=== PATIENT | female | born 1945 | race Caucasian/White ===

== ENCOUNTER 2018-06-22 13:31 | Inpatient (IN) | payer MEDICARE ==
[~2018-06-22] VITALS: Ht 157.5 cm; Wt 61.2 kg
[2018-06-22 15:28] LABS: BASOPHILS % 0.1 % (0.0-1.0); EOSINOPHILS % 0.2 % (0.0-6.0); HEMATOCRIT 37.1 % (34.2-44.1); HEMOGLOBIN 12.8 g/dL (12.0-16.0); LYMPHOCYTES # (AUTO) 1.5 (1.0-3.2); LYMPHOCYTES % 16.5 % (18.0-39.1); MEAN CORPUSCULAR HEMOGLOBIN 31.3 pg (28-32); MEAN CORPUSCULAR HGB CONC 34.5 g/dL (31-35); MEAN CORPUSCULAR VOLUME 90.7 fL (81-99); MONOCYTES # (AUTO) 0.6 (0.2-0.8); MONOCYTES % 6.9 % (4.4-11.3); NEUTROPHILS # (AUTO) 6.9 (2.1-6.9); PLATELET COUNT 213 x10e3/uL (140-360); RED BLOOD COUNT 4.09 x10e6/uL (3.6-5.1); RED CELL DISTRIBUTION WIDTH 12.7 % (11.7-14.4)
[2018-06-22 15:33] LABS: CLARITY,URINE CLEAR (CLEAR); COLOR,URINE YELLOW (YELLOW); LEUKOCYTE ESTERASE ,URINE NEGATIVE (NEGATIVE)
[2018-06-22 15:34] LABS: BILIRUBIN,URINE NEGATIVE (NEGATIVE); KETONES,URINE NEGATIVE (NEGATIVE); NITRITE,URINE NEGATIVE (NEGATIVE); PROTEIN,URINE DIPSTICK NEGATIVE (NEGATIVE); URINE UROBILINOGEN 0.2 mg/dL (0.2 - 1)
[2018-06-22 15:45] LABS: EPITHELIAL CELLS,URINE FEW /LPF; RBC,URINE 0-5 /HPF (0-5); WBC,URINE (MAN) 0-5 /HPF (0-5)
[2018-06-22 15:52] LABS: ALBUMIN 3.6 g/dL (3.5-5.0); ANION GAP 14.6 mmol/L (8-16); CALCIUM 9.4 mg/dL (8.4-10.2); CREATININE, SERUM 0.94 mg/dL (0.57-1.11); POTASSIUM 3.6 mmol/L (3.5-5.1)
[2018-06-22] MEDS ORDERED: SODIUM CHLORIDE FLUSH 10 ML SYR INJ PRN (17:00)
[2018-06-22] MEDS ORDERED: ONDANSETRON HCL INJ 2 MG/ML VIAL IV PRN (17:00)
[2018-06-22] MEDS ORDERED: MORPHINE SULFATE 2 MG/ML SYR IV PRN (17:00)
[2018-06-22] MEDS: SODIUM CHLORIDE 0.9% 1000ML 1,000 ML IV SCH (17:45)
[2018-06-22] MEDS: CEFTRIAXONE SOD 1 GM VIAL IV SCH (17:46)
[2018-06-22] MEDS ORDERED: [UNRECOGNIZED DRUG - OTHER] PO (18:29)
[2018-06-22] MEDS ORDERED: ATORVASTATIN CA10 MG PO (19:33)
[2018-06-22 19:46] VITALS: BP 139/66
[2018-06-22 20:00] VITALS: BP 139/66
[2018-06-23] VITALS (8 sets, daily range): BP systolic 120–164; BP diastolic 56–74
[2018-06-23] MEDS: SODIUM CHLORIDE 0.9% 1000ML 1,000 ML IV SCH ×2 (01:50→12:47)
[2018-06-23] MEDS ORDERED: ALLEGRA ALLERG180 MG PO (02:02)
[2018-06-23] MEDS ORDERED: DIPHENHYDRAMINE HCL INJ 50 MG/ML VIAL IV ONE ×2 (04:00→08:15)
[2018-06-23] MEDS ORDERED: SODIUM CHLORIDE 0.9% 50ML 50 ML ONE (05:07)
[2018-06-23] MEDS: CEFTRIAXONE SOD 1 GM VIAL IV SCH ×2 (05:16→17:47)
[2018-06-23 06:09] LABS: EOSINOPHILS # (AUTO) 0.1 (0.0-0.4); EOSINOPHILS % 1.4 % (0.0-6.0); HEMATOCRIT 36.8 % (34.2-44.1); HEMOGLOBIN 12.6 g/dL (12.0-16.0); LYMPHOCYTES # (AUTO) 1.7 (1.0-3.2); MEAN CORPUSCULAR HEMOGLOBIN 31.2 pg (28-32); MEAN CORPUSCULAR HGB CONC 34.2 g/dL (31-35); MEAN CORPUSCULAR VOLUME 91.1 fL (81-99); MONOCYTES # (AUTO) 0.4 (0.2-0.8); MONOCYTES % 7.1 % (4.4-11.3); NEUTROPHILS % 58.3 % (38.7-80.0); PLATELET COUNT 183 x10e3/uL (140-360); RED BLOOD COUNT 4.04 x10e6/uL (3.6-5.1); RED CELL DISTRIBUTION WIDTH 12.5 % (11.7-14.4)
--- NOTE | 2018-06-23 10:49 | History and Physical ---
Ms. Christine is a [facility] 73-year-old woman who is sent from Dr. Lopez's office for finding of kidney stones. HISTORY OF PRESENT ILLNESS: The patient reports that she was in [place], [place], last Domingo and developed some abdominal discomfort and dysuria. She visited an emergency room and was told she had both kidney stones and urinary tract infection and was given an antibiotic. On returning to [facility], she saw Dr. Lopez, who confirmed the findings. PAST MEDICAL HISTORY: Significant for general good health. She reports she has recently found she has macular degeneration and takes PreserVision vitamins. She also takes atorvastatin 10 mg one-half tablet daily. She had thoracic spine surgery in 2013. She has a remote hysterectomy and had kidney stones once as a young woman. PHYSICAL EXAMINATION GENERAL: Exam at this time shows a pleasant white woman who is alert and comfortable today. VITALS: Blood pressure 160/70. HEENT: Unremarkable. NECK: No jugular venous distention. THORAX: Heart sounds S1, S2 are equal. No murmurs. LUNGS: Clear. ABDOMEN: Protuberant. Normal bowel sounds. Nontender. No mass. EXTREMITIES: No cyanosis, clubbing or edema. Review of outside x-ray report suggests bilateral kidney stones. ASSESSMENT 1. Kidney stones. 2. Urinary tract infection. 3. Elevated blood pressure readings. PLAN: Will monitor her closely and see whether she may need blood pressure medications or not. Will await cystoscopy. Job#: [id number] cc:MD HAMLET SHARP MD
--- NOTE | 2018-06-23 11:12 | Consultation ---
DATE OF CONSULTATION: June 23, 2018 UROLOGY CONSULTATION REASON FOR CONSULTATION: Obstructive uropathy. HISTORY OF PRESENT ILLNESS: Maisha Christine is a 73-year-old woman who has had a previous history of urinary tract infections in the past. She had not had a recent one. The patient noted gross hematuria last Thursday. She also noted severe left-sided flank pain. She was evaluated by her primary care physician and underwent CT scanning, which showed bilateral obstructing ureterolithiasis as well as punctate right nephrolithiasis. The patient denies any stress-type urinary incontinence. Reports rare urge-type urinary incontinence. Denies ever having any urological surgery. The patient did have a kidney stone in the remote past over 40 years ago that she presumably passed but never retrieved. PAST MEDICAL AND SURGICAL HISTORY 1. 2, para 2 by normal spontaneous vaginal delivery. 2. Status post total vaginal hysterectomy. 3. Hypercholesterolemia. 4. The patient has what sounds like recurrent idiopathic urticaria. ALLERGIES: IBUPROFEN. CURRENT MEDICATIONS: Please refer to the MAR. REVIEW OF SYSTEMS: As discussed above in the history of present illness and past medical history, otherwise negative for all systems. SOCIAL HISTORY: The patient denies smoking, ethanol and drug use. 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 PHYSICAL EXAMINATION GENERAL: Healthy-appearing, 73-year-old woman lying in bed in no apparent distress. VITAL SIGNS: She is currently afebrile, and the vital signs are currently stable. ABDOMEN: Soft, nondistended and nontender without costovertebral angle tenderness. The kidneys are not palpable without hepatosplenomegaly. No obvious evidence of hernia. For the remaining physical examination systems, please refer to the admission history and physical on the chart. LABORATORY STUDIES: CT scan of the abdomen and pelvis, which was done in an outside institution, showed bilateral obstructing ureterolithiasis and right punctate nephrolithiasis. White blood cell count is 5180, hemoglobin 12.6, platelets 183,000. The patient's creatinine is 0.94. Urinalysis is negative. ASSESSMENT 1. History of urinary tract infection. 2. History of gross hematuria. 3. Left renal colic that is improved. 4. Bilateral obstructing ureterolithiasis. 5. Right punctate nephrolithiasis. 6. Urge-type urinary incontinence. 7. Bilateral hydroureteronephrosis. PLAN: Due to the fact that the patient has bilaterally obstructing stones, stent placement is indicated. I discussed with the patient the options of stone passage trial versus intervention with stent placement followed by elective stone surgery. The patient is agreeable to the plan. She understands she will have temporary indwelling ureteral stents that will require followup and removal. Thank you very much for involving us in the care of your patient. We will be happy to follow her along with you, as well as an outpatient. Job#: [id number] cc:GANESH LING MD
[2018-06-23] MEDS ORDERED: IOPAMIDOL 610MG/1ML 300 MG/ML VIAL IV ONE (12:06)
[2018-06-23] MEDS ORDERED: ACETAMINOPHEN/CODEINE 300MG - 30MG TAB PO PRN (12:15)
[2018-06-23] MEDS: PHENAZOPYRIDINE HCL 100 MG TAB PO SCH ×2 (14:00→18:33)
[2018-06-23] MEDS: OXYBUTYNIN CHLORIDE 5 MG TAB PO SCH ×2 (15:23→21:24)
[2018-06-23] MEDS ORDERED: LIDOCAINE HCL 2% LOCAL INJ 5 ML SDV VIAL INJ ONE (19:00)
[2018-06-23] MEDS ORDERED: DEXAMETHASONE SOD PHOS INJ 4 MG/ML VIAL ONE (19:00)
[2018-06-23] MEDS ORDERED: PROPOFOL IV EMULSION 10 MG/ML 20 ML VIAL ONE (19:00)
[2018-06-23] MEDS ORDERED: ONDANSETRON HCL INJ 2 MG/ML VIAL ONE (19:00)
[2018-06-23] MEDS ORDERED: SEVOFLURANE INHAL SOLN 250 ML PEN BTL ONE (19:00)
[2018-06-24] VITALS: BP 122/65
[2018-06-24] MEDS: SODIUM CHLORIDE 0.9% 1000ML 1,000 ML IV SCH (01:12)
[2018-06-24 04:00] VITALS: BP 175/76
[2018-06-24] MEDS: CEFTRIAXONE SOD 1 GM VIAL IV SCH (04:36)
[2018-06-24 05:41] VITALS: BP 152/69
[2018-06-24 07:15] VITALS: BP 123/58
[2018-06-24 07:30] VITALS: BP 123/58
[2018-06-24] MEDS: OXYBUTYNIN CHLORIDE 5 MG TAB PO SCH (09:41)
--- NOTE | 2018-06-24 09:48 | Discharge Summary ---
Ms. Christine is a [facility] 73-year-old woman who presented to the emergency room on June 22, 2018, with the complaint of abdominal discomfort and finding of kidney stones on x-ray. She was seen in consultation by Dr. Jacobs. On June 23, 2018, was taken to the operating room where she had ureteral stents placed. Urinalysis showed 0-5 red cells and 0-5 white cells. Patient tolerated the placement on bilateral stents. Today, on the morning of June 24, 2018, the patient is pain free and making urine. She is eager to be discharged home and she is afebrile. She will follow up with Dr. Jacobs in the office in 7-10 days to plan further management and ureteroscopy. DISCHARGE DIAGNOSES 1. Kidney stones. 2. Successful left ureteral stent placement. FATUMA POLLACK MD Job#: [id number] RI cc:MD HAMLET SHARP MD
[2018-06-24] MEDS ORDERED: TYLENOL WITH C1 EACH PO (09:56)
[2018-06-24] MEDS ORDERED: DITROPAN XL5 MG PO (09:57)
== END 2018-06-24 10:24 | disposition home or self-care (01) | DRG 694 ==
LOC: ER 14:24 → ERHOLD 16:47 → MED/SURG3 17:44
PROVIDERS: ADMIT Internal Medicine Cardiovascular Disease; ATTEND Internal Medicine Cardiovascular Disease
PROC: BT141ZZ Fluoroscopy of Kidneys, Ureters and Bladder using Low Osmolar Contrast (ICD-10-PCS; 2018-06-23)
PROC: 0T788DZ Dilation of Bilateral Ureters with Intraluminal Device, Via Natural or Artificial Opening Endoscopic (ICD-10-PCS; principal; 2018-06-23 12:00)
DX: N13.2 Hydronephrosis with renal and ureteral calculous obstruction (principal); E78.00 Pure hypercholesterolemia, unspecified; N39.41 Urge incontinence; H35.30 Unspecified macular degeneration
CPT/HCPCS: 36415; 74420; 80053; 81001; 85025; 99284; C2617; J0696; J1100; J1200; J2001; J2405; J7030

== ENCOUNTER → 2018-07-16 | Day surgery (SDC) | payer MEDICARE ==
--- NOTE | 2018-07-15 11:23 | Diagnostic Imaging Report ---
EXAMINATION: CHEST 2 VIEWS INDICATION: Pre-admit COMPARISON: None FINDINGS: TUBES and LINES: None. LUNGS: Lungs are well inflated. Lungs are clear. There is no evidence of pneumonia or pulmonary edema. PLEURA: No pleural effusion or pneumothorax. HEART AND MEDIASTINUM: The cardiac silhouette is unremarkable. Ectatic thoracic aorta. BONES AND SOFT TISSUES: No acute osseous lesion. Soft tissues are unremarkable. UPPER ABDOMEN: No free air under the diaphragm. IMPRESSION: No acute radiographic abnormality. Signed by: Dr. Jabier Bains MD on 07/15/2018 11:20 AM
[2018-07-15 11:27] LABS: EOSINOPHILS # (AUTO) 0.1 (0.0-0.4); EOSINOPHILS % 1.3 % (0.0-6.0); HEMATOCRIT 37.5 % (34.2-44.1); HEMOGLOBIN 12.8 g/dL (12.0-16.0); LYMPHOCYTES # (AUTO) 1.8 (1.0-3.2); LYMPHOCYTES % 28.4 % (18.0-39.1); MEAN CORPUSCULAR HEMOGLOBIN 31.3 pg (28-32); MEAN CORPUSCULAR HGB CONC 34.1 g/dL (31-35); MEAN CORPUSCULAR VOLUME 91.7 fL (81-99); MONOCYTES # (AUTO) 0.5 (0.2-0.8); MONOCYTES % 7.3 % (4.4-11.3); NEUTROPHILS % 62.8 % (38.7-80.0); PLATELET COUNT 188 x10e3/uL (140-360); RED BLOOD COUNT 4.09 x10e6/uL (3.6-5.1); RED CELL DISTRIBUTION WIDTH 12.6 % (11.7-14.4)
[~2018-07-16] MED LIST: ALLEGRA ALLERG180 MG PO; ATORVASTATIN CA10 MG PO; BELLADONNA/OPIUM 60 MG SUPP PR ONE; CEFTRIAXONE SOD 1 GM VIAL ONE; DEXAMETHASONE SOD PHOS INJ 4 MG/ML VIAL ONE; DITROPAN XL5 MG PO; FENTANYL CITRATE/PF 100MCG/2 ML INJ ONE; IOPAMIDOL 610MG/1ML 300 MG/ML VIAL IV ONE; LIDOCAINE HCL 2% LOCAL INJ 5 ML SDV VIAL INJ ONE; MIDAZOLAM HCL 2 MG/2 ML VIAL ONE; MULTI-VITAMIN1 EACH PO; ONDANSETRON HCL INJ 2 MG/ML VIAL ONE; PRESERVISION A1 EACH PO; PROPOFOL IV EMULSION 10 MG/ML 20 ML VIAL ONE; SEVOFLURANE INHAL SOLN 250 ML PEN BTL ONE; TYLENOL WITH C1 EACH PO; [UNRECOGNIZED DRUG - OTHER] PO
--- OUTSIDE RECORDS SUMMARY | 2018-07-16 09:05 | XMS REPORT | Summary of Care ---
Author Author ANURADHA Real, GANESH Pantoja Unknown Address Unknown Phone Unavailable Care Team Providers Care Federal Appellate Law Clerk Name Role Phone ANURADHA Real, GANESH Unavailable Unavailable ANURADHA HALL [place], GANESH FLANNERY Unavailable Unavailable Unavailable Unavailable Functional Status Name Dates Details Functional status health issues are not documented Status: Name Dates Details Cognitive status health issues are not documented Status: Problems Name Dates Details Right lumbar radiculopathy (724.4, M54.16) Status: Active Scoliosis (737.30, M41.9) Status: Active Right thigh pain (729.5, M79.651) Status: Active Right leg paresthesias (782.0, R20.2) Status: Active Acute bronchitis (466.0, J20.9) Status: Active Allergic rhinitis due to pollen (477.0, J30.1) Status: Active Need for vaccination for pneumococcus (V03.82, Z23) Status: Active Well woman exam (no gynecological exam) (V70.0, Z00.00) Status: Active Abnormal urine finding (791.9, R82.90) Status: Active Osteopenia (733.90, M85.80) Status: Active Screening for hypothyroidism (V77.0, Z13.29) Status: Active Bilateral hearing loss (389.9, H91.93) Status: Active Right hip pain (719.45, M25.551) Status: Active BMI 23.0-23.9, adult (V85.1, Z68.23) Status: Active Need for 23-polyvalent pneumococcal polysaccharide vaccine (V03.82, Z23) Status: Active Encounter for Medicare annual wellness exam (V70.0, Z00.00) Status: Active Breast pain, left (611.71, N64.4) Status: Active Dense breast tissue (793.82, R92.2) Status: Active Other hyperlipidemia (272.4, E78.49) Status: Active On statin therapy (V58.69, Z79.899) Status: Active Influenza vaccination declined by patient (V64.06, Z28.21) Status: Active Depression screening (V79.0, Z13.89) Status: Active At low risk for fall (V49.89, Z91.81) Status: Active Encounter for mini-mental status examination Status: Active Personal history of colonic polyps (V12.72, Z86.010) Status: Active Flank pain (789.09, R10.9) Status: Active Hematuria (599.70, R31.9) Status: Active History of renal calculi (V13.01, Z87.442) Status: Active Left flank pain (789.09, R10.9) Status: Active Bilateral ureteral calculi (592.1, N20.1) Status: Active Hydronephrosis, bilateral (591, N13.30) Status: Active Hydroureter (593.5, N13.4) Status: Active Medications Name Dates Details Giulia TABS TAKE 0.5 TABLET DAILY PRN R.N. Active Calcium 600+D TABS TAKE 1 TABLET DAILY * Refills: 0 R.N. Active Ocuvite TABS TAKE 1 TABLET DAILY. * Refills: 0 R.N. Active Atorvastatin Calcium 10 MG Oral Tablet TAKE 1 TABLET DAILY. * Quantity: 90 Refills: 2 ANURADHA Real, GANESH * Start : 29-Aug-2016 Active Allergies and Adverse Reactions Name Dates Details No Known Drug Allergies (Allergy) Status: Active Past Medical History Name Dates Details History of Encounter for routine gynecological examination with Papanicolaou smear of cervix (V72.31, Z01.419) Status: Resolved History of essential hypertension (V12.59, Z86.79) Status: Resolved History of Laryngotracheitis (464.20) Status: Resolved History of osteopenia (V13.59, Z87.39) Status: Resolved History of Sinusitis (473.9, J32.9) Status: Resolved History of urticaria (V13.3, Z87.2) Status: Resolved Procedures Procedure Dates Details CT Abdomen/Pelvis wo contrast [id number] Date: 21-Jun-2018 History of Hysterectomy Completed Immunization Name Dates Details Zoster (Zostavax) on: 25-Apr-2010 Prevnar 13 Intramuscular Suspension Lot #: [id number] on: 07-May-2016 Pneumococcal polysaccharide vaccine, 23 valent Lot #: [id number] on: 11-Jun-2017 Family History Name Dates Details Family history of Stroke Syndrome (V17.1) Status: Active Name Dates Details Family history of Hypertension (V17.49) Status: Active Social History Name Dates Details - Status: Name Dates Details Never smoker Vital Signs Date Test Result Details 32-Egw-880287:00 BP Systolic 173 mm[Hg] Status: Comments: Location: LUE; Position: Sitting BP Diastolic 88 mm[Hg] Status: Comments: Location: LUE; Position: Sitting :57 BP Systolic 164 mm[Hg] Status: Comments: Location: RUE; Position: Sitting BP Diastolic 90 mm[Hg] Status: Comments: Location: RUE; Position: Sitting :55 BP Systolic 174 mm[Hg] Status: Comments: Location: RUE; Position: Sitting BP Diastolic 91 mm[Hg] Status: Comments: Location: RUE; Position: Sitting Height 61.5 in Status: Weight 130.4375 lb Status: Body Mass Index Calculated 24.25 kg/m2 Status: Body Surface Area Calculated 1.58 m2 Status: Temperature 97.6 f Status: Comments: Method: Temporal Heart Rate 72 /min Status: Respiration Rate 18 /min Status: :10 BP Systolic 144 mm[Hg] Status: Comments: Location: LUE; Position: Sitting BP Diastolic 76 mm[Hg] Status: Comments: Location: E; Position: Sitting Height 61.5 in Status: Weight 132.0625 lb Status: Body Mass Index Calculated 24.55 kg/m2 Status: Body Surface Area Calculated 1.59 m2 Status: Temperature 97.6 f Status: Comments: Method: Temporal Heart Rate 78 /min Status: Respiration Rate 16 /min Status: Physical Findings 0 Status: Comments: Pain Scale Physical Findings 0 Status: Comments: Alcohol Screen - How many times in the past yr have you had 5 (for M) or 4 (for F) or 4 (for all > 65yrs) or more drinks in a day? Results Date Description Value Details :19 [O] Urine Dipstick (In Office) Glucose negative (Normal) LEUKOCYTES small NITRITE negative (Normal) UROBILINOGEN negative (Normal) PROTEIN negative (Normal) pH 5 (Normal) URINE BLOOD 250 SPECIFIC GRAVITY 1.000 (Normal) KETONES negative (Normal) BILIRUBIN negative (Normal) COLOR URINE yellow (Normal) APPEARANCE clear (Normal) 19-Nwm-09235:41 CT Renal Stone [address] SEE NOTESSEE NOTES Comments: Dr. Lopez was notified by telephone at 10:50 AM June 22, 2018.--Read by: Jerardo Cesarictated Date/time: 06/22/18 10:43Electronically Signed by: Jerardo Cesar MD 06/22/1810:51FINAL REPORTEXAM: CT ABDOMEN AND PELVIS WITHOUT CONTRASTDATE: 06/22/2018 8:41 AM CDTINDICATION: - R10.9 Unspecified abdominal pain,R31.9 Hematuria,unspecifiedADDITIONAL INFORMATION: None.COMPARISON: None.TECHNIQUE: Volumetric CT of the abdomen and pelvis is acquired withoutintravenous contrast. Axial, coronal and sagittal images are provided.IV contrast: None.Enteric contrast: None.DLP: 269 mGy-cmFINDINGS: Lines, tubes and hardware: None.Lower thorax: Clear.Liver: Normal.Biliary tree: No intra- or extrahepatic biliary ductal dilation.Gallbladder: Normal.Pancreas: Normal.Spleen: Normal.Adrenals: Normal.Kidneys and ureters: There are multiple punctate calyceal stones in the rightkidney. There is an 8 mm stone in the mid right ureter with associatedhydronephrosis and hydroureter. The ureter distal to the stone is normal incaliber. There is mild hydroureter on the left side and there is a 6 mm stonein the distal left ureter immediately proximal to the ureteropelvic junction(series 2 image 145).There is no perinephric or periureteral fat stranding to suggest acuteinflammation.Bladder: Normal.Reproductive organs: There has been a prior hysterectomy.Gastrointestinal tract: There is div erticular disease of the sigmoid colon butno evidence of diverticulitis. Moderate amount of stool is present in thecolon.Appendix: Normal.Peritoneum, mesentery and retroperitoneum: No free air, ascites or loculatedfluid.Lymph nodes: Normal.Vasculature: Mild atherosclerotic disease is present in the aorta.Bones: No acute abnormality.Soft tissues: Mild degenerative changes are present throughout the spine.IMPRESSION: 1. Bilateral ureteral stones as described in the body of this report withassociated hydroureter on the left side and hydroureter with hydronephrosis onthe right side which are concerning for obstruction.2. Additional punctate calyceal stones in the right kidney.Primordial system was activated at 9:52 am June 22, 2018.--Read by: Jerardo Cesar MDDictated Date/time: 06/22/18 09:44Electronically Signed by: Jerardo Cesar MD 06/22/1810:36FINAL REPORT [id number]-[id number] [[facility]] CMP W/EGFR Glucose 93 mg/dL Range: 65-99 BUN 11 mg/dL Range: 8-27 Creatinine 0.81 mg/dL Range: 0.57-1.00 eGFR If NonAfricn Am 72 mL/min/1.7 Range: >59 eGFR If Africn Am 83 mL/min/1.7 Range: >59 BUN/Creatinine Ratio 14 Range: 12-28 Sodium, Serum 144 mmol/L Range: 134-144 Potassium 4.6 mmol/L Range: 3.5-5.2 Chloride 101 mmol/L Range: 96-106 Carbon Dioxide, Total 25 mmol/L Range: 20-29 Calcium, Serum 9.3 mg/dL Range: 8.7-10.3 Protein, Total 6.8 g/dL Range: 6.0-8.5 Albumin 4.3 g/dL Range: 3.5-4.8 Globalulin, Total 2.5 g/dL Range: 1.5-4.5 A/G Ratio 1.7 Range: 1.2-2.2 Bilirubin, Total 0.3 mg/dL Range: 0.0-1.2 Alkaline Phosphatase 40 {IU/L} Range: 39-117 AST (SGOT) 30 {IU/L} Range: 0-40 ALT (SGPT) 21 {IU/L} Range: 0-32 89-Mgn-873589:04 [[facility]] CBC (INCLUDES DIFF/PLT) WBC 6.3 {x10E3/uL} Range: 3.4-10.8 RBC 4.40 {x10E6/uL} Range: 3.77-5.28 Hemoglobin 13.5 g/dL Range: 11.1-15.9 Hematocrit 39.7 % Range: 34.0-46.6 MCV 90 fL Range: 79-97 MCH 30.7 pg Range: 26.6-33.0 MCHC 34.0 g/dL Range: 31.5-35.7 RDW 13.1 % Range: 12.3-15.4 Platelets 215 {x10E3/uL} Range: 150-379 Neutrophils 63 % Range: Not Estab. Lymphs 28 % Range: Not Estab. Monocytes 8 % Range: Not Estab. Eos 1 % Range: Not Estab. Basos 0 % Range: Not Estab. Immature Cells Neutrophils (Absolute) 4.0 {x10E3/uL} Range: 1.4-7.0 Lymphs (Absolute) 1.8 {x10E3/uL} Range: 0.7-3.1 Monocytes(Absolute) 0.5 {x10E3/uL} Range: 0.1-0.9 Eos (Absolute) 0.1 {x10E3/uL} Range: 0.0-0.4 Baso (Absolute) 0.0 {x10E3/uL} Range: 0.0-0.2 Immature Granulocytes 0 % Range: Not Estab. Immature Grans (Abs) 0.0 {x10E3/uL} Range: 0.0-0.1 NRBC Hematology Comments: :00 [[facility]] URINALYSIS, COMPLETE Specific Gould 1.005 Range: 1.005-1.030 pH 6.5 Range: 5.0-7.5 Urine-Color Yellow Range: Yellow Appearance Clear Range: Clear WBC Esterase Trace (Abnormal) Range: Negative Protein Negative Range: Negative/Trace Glucose Negative Range: Negative Ketones Negative Range: Negative Occult Blood Trace (Abnormal) Range: Negative Bilirubin Negative Range: Negative Urobilinogen,Semi-Qn 0.2 mg/dL Range: 0.2-1.0 Nitrite, Urine Negative Range: Negative Microscopic Examination See below: Comments: Microscopic was indicated and was performed. WBC 0-5 {/hpf} Range: 0 - 5 RBC 0-2 {/hpf} Range: 0 - 2 Epithelial Cells (non renal) None seen {/hpf} Range: 0 - 10 Epithelial Cells (renal) Casts Cast Type Crystals Crystal Type Mucus Threads Bacteria Few Range: None seen/Few Yeast Trichomonas Comment Microscopic Examination :00 [QL] CULTURE, URINE, ROUTINE Urine Culture, Routine Final report Result 1 No growth Plan of Care Name Dates Details Planned Observations Planned Goals not documented Planned Encounters Appointment; GANESH LOPEZ M.D. On: 27-Jul-2018 10:30 Instructions Name Dates Details Instructions not documented Encounters Appointment; GANESH LOPEZ M.D. Encounter Diagnosis: Problem not documented On: 29-Aug-2016 10:45 Appointment; GANESH LOPEZ M.D. Encounter Diagnosis: Problem not documented On: 11-Jun-2017 14:15 Appointment; GANESH LOPEZ M.D. Encounter Diagnosis: Problem not documented On: 08-Dec-2017 9:30 Appointment; GANESH LOPEZ M.D. Encounter Diagnosis: Problem not documented On: 21-Jun-2018 15:45 Appointment; GANESH LOPEZ M.D. Encounter Diagnosis: Problem not documented On: 22-Jun-2018 11:00
--- OUTSIDE RECORDS SUMMARY | 2018-07-16 09:05 | XMS REPORT ---
[facility] Address Unknown Phone Unavailable Care Team Providers Care Network Cable Installer Name Role Phone HAMLET HAYES Unavailable Unavailable Problems This patient has no known problems. Allergies, Adverse Reactions, Alerts This patient has no known allergies or adverse reactions. Medications This patient has no known medications. Results Test Description Test Time Test Comments Text Results Atomic Results Result Comments CHEST 2 VIEWS 2018-07-15 11:15:00 [place] [address] Patient Name: KATERINE VALDIVIA MR #: [id number] : 1945 Age/Sex: 73/F Req #: [id number] Adm Physician: Ordered by: HAMLET HAYES MD Report #: [id number] Location: OR Room/Bed: Procedure: [id number] DX/CHEST 2 VIEWS Exam Date: Exam Time: REPORT STATUS: Signed EXAMINATION: CHEST 2 VIEWS INDICATION: Pre-admit COMPARISON: N one FINDINGS: TUBES and LINES: None. LUNGS: Lungs are well inflated. Lungs are clear. There is no evidence of pneumonia or pulmonary edema. PLEURA: No pleural effusion or pneumothorax. HEART AND MEDIASTINUM: The cardiac silhouette is unremarkable. Ectatic thoracic aorta. BONES AND SOFT TISSUES: No acute osseous lesion. Soft tissues are unremarkable. UPPER ABDOMEN: No free air under the diaphragm. IMPRESSION: No acute radiographic abnormality. Signed by: Dr. Derrek Bains MD on 07/15/2018 11:20 AM Dictated By: DERREK BAINS MD 112 Transcribed By: URIEL on 07/15/181119 COPY TO: HAMLET HAYES MD
--- NOTE | 2018-07-16 09:37 | Diagnostic Imaging Report ---
PROCEDURE:X-RAY ABDOMEN - KUB COMPARISON:None. INDICATIONS:PREOPERATIVE XRAY FOR CYSTOSCOPY FINDINGS: Bilateral internal ureteral stents are noted. The proximal locking loops project over the renal pelves. The distal locking loops project over the urinary bladder. Tandem calcifications measuring 9 mm and 13 mm wide along side the midportion of the right internal ureteral stent. Additional right renal calculi measure 2 and 3 mm projecting over the interpolar region and lower pole, respectively. Calcifications projecting along side the distal aspect of the left internal ureteral stent likely represent phleboliths. Bowel gas pattern is nonobstructive. The regional skeletal structures are intact. CONCLUSION: Bilateral internal ureteral stents as above. 9 and 13 mm calculi lie alongside the midportion of the right internal ureteral stent. Additional small right renal calculi. Dictated by: Nicola Mckeon M.D. on 07/16/2018 at 9:45 Electronically approved by: Nicola Mckeon M.D. on 07/16/2018 at 9:45
[2018-07-16 13:15] VITALS: BP 164/84
--- NOTE | 2018-09-02 01:32 | Operative Report ---
DATE OF PROCEDURE: July 16, 2018 PREOPERATIVE DIAGNOSES: 1. Right nephrolithiasis. 2. Right ureterolithiasis. 3. Left ureterolithiasis. 4. Bilateral indwelling ureteral stents. POSTOPERATIVE DIAGNOSES: 1. Right nephrolithiasis. 2. Right ureterolithiasis. 3. Left ureterolithiasis. 4. Bilateral indwelling ureteral stents. 5. Atrophic vaginitis with vaginal os stenosis. 6. Grade 2 rectocele. OPERATIONS PERFORMED: 1. Cystourethroscopy with complicated removal of bilateral indwelling ureteral stents (separate procedure performed for diagnosis of stents done with separate scope). 2. Right ureteroscopy with holmium laser lithotripsy and insertion of stent (separate procedure performed for the right ureterolithiasis). 3. Right ureteroscopy with holmium laser lithotripsy (separate procedure performed for the right nephrolithiasis). 4. Left ureteroscopy with stone manipulation and extraction (separate procedure performed for the left ureterolithiasis). 5. Radiological services for supervision and interpretation of ureteroscopy. 6. Interpretation of retrograde ureteropyelography. 7. Supervision of fluoroscopy, no radiologist present. 8. Pelvic examination under anesthesia. ANESTHESIA: General. COMPLICATIONS: None. CLINICAL SUMMARY: Maisha Christine is a 73-year-old woman with urolithiasis and bilateral indwelling ureteral stents. She is brought for management of her stones. She is aware of the risks of bleeding, infection, injury to adjacent structures, need for additional procedures, and elected to proceed. OPERATIVE PROCEDURE IN DETAIL: Informed consent was verified. Maisha Christine was properly identified, taken to the operating room, and placed on the cystoscopy table in supine position. Anesthesia was uneventfully begun. The patient was then carefully and gently repositioned in dorsal lithotomy position with all pressure points well padded. Her genitalia were prepared and draped in usual sterile fashion. The 22.5-[place] cystoscope sheath was inserted into patient's urethra and bladder was drained. Panendoscopy revealed stents emerging from both ureteral orifices. A guidewire was then placed alongside the stent into the left ureter and guided to the level of the patient's kidney. The stent was then grasped, completely removed, and discarded. Semirigid ureteroscope was then placed into the left ureter where we identified a stone. This stone was extracted atraumatically with a basket. Additional ureteroscopy was performed on left hand side. No additional stones remained in the entire left-sided collecting system. Panendoscopy of the intrarenal collecting system revealed Bridger's plaques being present. A guidewire was then placed into the right ureter and guided to the level of the patient's kidney. The stent was then grasped, completely removed, and discarded. We placed a semirigid ureteroscope alongside the guidewire up into the right ureter where we identified numerous stones. Holmium laser lithotripsy was performed of these impacted stones. All stones were broken into smaller fragments, the largest fragments were extracted. The flexible ureteroscope was then brought up over the guidewire and guided to the level of the patient's kidney. Panendoscopy of the intrarenal collecting system revealed stones. We proceeded with performing a holmium laser lithotripsy to break all visible stones into smaller fragments that should be passable. With cystoscopic and fluoroscopic guidance, a right-sided indwelling ureteral stent was then placed. It was coiled in patient's kidney as well as patient's bladder. The retaining suture was cut short. Interpretation of retrograde ureteropyelography: Contrast was instilled in retrograde fashion bilaterally. There was right-sided fullness more than left-sided fullness. There was some ptosis of the right kidney. The right stent was in good position, coiled in patient's kidney as well as patient's bladder at the end of the case. The left side exhibited unobstructed drainage. The patient's bladder was then drained. The cystoscope was withdrawn. Pelvic examination under anesthesia revealed grade 2 rectocele. No cystocele. There was atrophic (senile) vaginitis with vaginal os stenosis. No abnormal palpable pelvic masses could be appreciated. There were no obvious mucosal lesions. The patient was then uneventfully reversed from anesthesia and taken to recovery room in stable condition. Explicit postoperative instructions were given, and will plan on returning the patient to the operating room to remove her stent and perform another ureteroscopy, and eventually render the patient stent free and stone free. Job#: [id number] cc:GANESH LING MD
== END | disposition home or self-care (01) ==
LOC: OR 08:38
PROVIDERS: ATTEND Urology
DX: N20.0 Calculus of kidney (principal); N20.1 Calculus of ureter; Z46.6 Encounter for fitting and adjustment of urinary device; N28.89 Other specified disorders of kidney and ureter; N28.83 Nephroptosis; N95.2 Postmenopausal atrophic vaginitis; N81.6 Rectocele; N39.0 Urinary tract infection, site not specified; N13.30 Unspecified hydronephrosis; Z88.8 Allergy status to other drugs, medicaments and biological substances; Z01.810 Encounter for preprocedural cardiovascular examination; Z01.812 Encounter for preprocedural laboratory examination; Z01.818 Encounter for other preprocedural examination
CPT/HCPCS: 36415; 52352; 52356; 71046; 74420; 85025; 88300; 93005; C2617; J0696; J1100; J2001; J2250; J2405; J2704; Q9967; 74018

== ENCOUNTER → 2018-08-04 | Day surgery (SDC) | payer MEDICARE ==
[~2018-08-04] MED LIST changes: +GENTAMICIN 80MG/NS 100 ML 100 ML IV ONE
--- OUTSIDE RECORDS SUMMARY | 2018-08-04 07:55 | XMS REPORT | Summary of Care ---
Author Author [facility] GARCIA, [email or web address] Unknown Address Unknown Phone Unavailable Care Team Providers Care Wood Car Builder Name Role Phone ANURADHA Real, GANESH Unavailable Unavailable ANURADHA HALL [place], GANESH FLANNERY Unavailable Unavailable Unavailable Unavailable Functional [...] Status: Active Hydroureter (593.5, N13.4) Status: Active Encounter for monitoring statin therapy (V58.83, Z51.81) Status: Active Medications Name Dates Details Giulia TABS TAKE 0.5 TABLET DAILY PRN Active Atorvastatin Calcium 10 MG Oral Tablet TAKE 1 TABLET DAILY. * Quantity: 90 Refills: 2 ANURADHA Real, GANESH * Start : 29-Aug-2016 Active PreserVision AREDS 2 Oral Capsule BID * Refills: 0 Active Oxybutynin Chloride TABS PRN QD * Refills: 0 Active Multi-Vitamins TABS * Refills: 0 Active Allergies and Adverse Reactions Name Dates Details Zostavax (Allergy) Status: Active Past Medical History Name [...] Procedure Dates Details CT Abdomen/Pelvis wo contrast [id number] Date: 21-Jun-2018 History of Hysterectomy Completed Immunization Name Dates Details Zoster (Zostavax) on: 25-Apr-2010 Prevnar 13 Intramuscular Suspension Lot #: [id number] on: 07-May-2016 Pneumococcal polysaccharide vaccine, 23 valent Lot #: [id number] on: 11-Jun-2017 Family History Name Dates Details Family history of Stroke Syndrome (V17.1) Status: Active Name Dates Details Family history of Hypertension (V17.49) Status: Active Social History Name Dates Details - Status: Name Dates Details Never smoker Vital Signs Date Test Result Details 17-Cis-867061:30 BP Systolic 127 mm[Hg] Status: Comments: Location: LUE; Position: Sitting BP Diastolic 74 mm[Hg] Status: Comments: Location: LUE; Position: Sitting Height 61.5 in Status: Weight 128.4 lb Status: Body Mass Index Calculated 23.87 kg/m2 Status: Body Surface Area Calculated 1.57 m2 Status: Temperature 96.9 f Status: Comments: Method: Temporal Heart Rate 83 /min Status: Comments: Location: L Radial; Respiration Rate 16 /min Status: Comments: Quality: Normal Physical Findings 0 Status: Comments: Pain Scale Physical Findings 0 Status: Comments: Alcohol Screen - How many times in the past yr have you had 5 (for M) or 4 (for F) or 4 (for all > 65yrs) or more drinks in a day? Physical Findings 0 Status: Comments: PHQ-9 Adult Depression Screening Results Date Description Value Details Results not documented Plan of Care Name Dates Details Planned Observations Planned Goals not documented Interventions Provided Instructions* Patient Specific Education Given; Done: 27 Jul 2018 Instructions Name Dates Details Instructions not documented Encounters Appointment; GANESH LING M.D. Encounter Diagnosis: Problem not documented On: 29-Aug-2016 10:45 Appointment; GANESH LING M.D. Encounter Diagnosis: Problem not documented On: 11-Jun-2017 14:15 Appointment; GANESH LING M.D. Encounter Diagnosis: Problem not documented On: 08-Dec-2017 9:30 Appointment; GANESH LING M.D. Encounter Diagnosis: Problem not documented On: 21-Jun-2018 15:45 Appointment; GANESH LING M.D. Encounter Diagnosis: Problem not documented On: 22-Jun-2018 11:00 Appointment; GANESH LIGN M.D. Encounter Diagnosis: Problem not documented On: 27-Jul-2018 10:30
--- NOTE | 2018-08-04 10:31 | Diagnostic Imaging Report ---
PROCEDURE:X-RAY ABDOMEN - KUB COMPARISON:KUB 07/16/18. INDICATIONS:PRE OP STENT REMOVAL FINDINGS: Interval removal of left sided internal ureteral stent. Right sided internal ureteral stent is present with the proximal loop overlying the right kidney and the distal loop overlying the bladder. There are 10 mm and 5 mm adjacent calcifications projecting over the right pelvis near the UVJ. Previously these stones were in the mid ureter. Additional 3 mm right mid and lower pole renal stones are again noted. No definite left sided stones. Left pelvic calcifications likely represent phleboliths. Non-obstructive bowel gas pattern. The bony structures are unremarkable. CONCLUSION: Right ureteral stent in place with 10 mm and 5 mm stones projecting near the right UVJ, previously these stones were in the mid ureter. Interval removal of left ureteral stent. Dictated by: DERREK TORRES M.D. on 08/04/2018 at 10:40 Electronically approved by: DERREK TORRES M.D. on 08/04/2018 at 10:40
[2018-08-04 11:55] VITALS: BP 154/81
--- NOTE | 2018-09-06 06:14 | Operative Report ---
DATE OF PROCEDURE: August 04, 2018 PREOPERATIVE DIAGNOSES 1. Right ureterolithiasis. 2. Right indwelling ureteral stent. POSTOPERATIVE DIAGNOSES 1. Right ureterolithiasis. 2. Right indwelling ureteral stent. 3. Atrophic vaginitis with vaginal os stenosis. 4. Grade 2 rectocele. OPERATIONS PERFORMED: Note these are all staged procedures as part of multistage, multistep process of managing the patient's urolithiasis. 1. Cystourethroscopy with complicated removal of right indwelling ureteral stent (separate procedure performed for the diagnosis of the stent done with separate scope). 2. Repeated right ureteroscopy and stone manipulation (separate procedure performed for the numerous right-sided ureteral stones). 3. Radiological services for supervision and interpretation of ureteroscopy. 4. Interpretation of retrograde ureteropyelography. 5. Supervision of fluoroscopy. No radiologist present. 6. Pelvic examination under anesthesia. ANESTHESIA: General. COMPLICATIONS: None. CLINICAL SUMMARY: Maisha Christine is a 73-year-old woman who underwent ureteral stenting as part of a stone procedure. She is brought to the operating room in hopes of rendering her stone-free and stent-free. She is aware of the risks of bleeding, infection, injury to adjacent structures, need for additional procedures, and elected to proceed. OPERATIVE PROCEDURE IN DETAIL: Informed consent was verified. Maisha Christine was properly identified and taken to the operating room and placed on the cystoscopy table in the supine position. Anesthesia was uneventfully begun. The patient was then carefully and gently repositioned in the dorsal lithotomy position with all pressure points well-padded. Her genitalia were prepared and draped in the usual sterile fashion. A 22.5-[place] cystoscope sheath with the obturator in place was atraumatically inserted into the patient's urethra and the bladder was drained. Panendoscopy revealed no suspicious mucosal lesions. There was a stent emerging from the right ureteral orifice. A guidewire was then placed alongside the stent and guided to the level of the patient's kidney. The stent was then grasped, completely removed and discarded. Semi-rigid ureteroscope was then placed alongside the guidewire and guided into the patient's right ureter. We identified stones. Multiple stone fragments were identified. We made sure these stones were small enough to be removed atraumatically and they were. They were extracted one at a time atraumatically. This procedure was performed several times until all the stones within the ureter were removed. Flexible ureteroscope was then placed over the guidewire and guided to the level of the patient's kidney. Panendoscopy revealed Bridger plaques throughout the patient's kidney. There were no suspicious lesions. No stones remaining. We carefully re-examined the ureter as we exited. It exhibited no stones remaining and no suspicious lesions. There was some narrowing at the level of the proximal ureter, but we were easily able to pass the scope back and forth across this region. The patient's bladder was drained. The cystoscope withdrawn. Pelvic examination revealed atrophic vaginitis with vaginal os stenosis and a grade 2 rectocele. No suspicious mucosal lesions could be identified. There were no abnormally palpable pelvic masses. The patient was then uneventfully reversed from anesthesia and taken to the recovery room in stable condition. There were no complications during this procedure. She tolerated the procedure well. Interpretation of retrograde ureteropyelography. Contrast was instilled in a retrograde fashion on the right hand side. There was chronic appearing fullness of the collecting system. There was a relative narrowing at the proximal ureter that we noted ureteroscopically. We plan to follow up on a long-term basis. Unobstructed drainage was observed fluoroscopically. Job#: [id number] cc:GANESH LING MD
== END | disposition home or self-care (01) ==
LOC: OR 07:52
PROVIDERS: ATTEND Urology
DX: N20.1 Calculus of ureter (principal); Z46.6 Encounter for fitting and adjustment of urinary device; N95.2 Postmenopausal atrophic vaginitis; N81.6 Rectocele; N13.5 Crossing vessel and stricture of ureter without hydronephrosis; Z88.8 Allergy status to other drugs, medicaments and biological substances
CPT/HCPCS: 52352; 74420; 88300; J0696; J1100; J1580; J2001; J2250; J2405; J2704; Q9967; 74018

== ENCOUNTER → 2019-01-12 | Outpatient (CLI) | payer MEDICARE ==
[~2019-01-12] MED LIST changes: -BELLADONNA/OPIUM 60 MG SUPP PR ONE; -CEFTRIAXONE SOD 1 GM VIAL ONE; -DEXAMETHASONE SOD PHOS INJ 4 MG/ML VIAL ONE; -FENTANYL CITRATE/PF 100MCG/2 ML INJ ONE; -GENTAMICIN 80MG/NS 100 ML 100 ML IV ONE; -IOPAMIDOL 610MG/1ML 300 MG/ML VIAL IV ONE; -LIDOCAINE HCL 2% LOCAL INJ 5 ML SDV VIAL INJ ONE; -MIDAZOLAM HCL 2 MG/2 ML VIAL ONE; -ONDANSETRON HCL INJ 2 MG/ML VIAL ONE; -PROPOFOL IV EMULSION 10 MG/ML 20 ML VIAL ONE; -SEVOFLURANE INHAL SOLN 250 ML PEN BTL ONE
--- NOTE | 2019-01-12 11:43 | Diagnostic Imaging Report ---
Exam: Abdominal film Clinical History: Calculus of kidney Comparison: Retrograde urogram 08/04/2018 DISCUSSION: Punctate, 1-2 mm calcifications project over the upper and lower poles of the right renal shadow. No suspicious left renal shadow calcifications. No calcifications project over the expected ureteral courses. Multiple round left pelvic calcifications are noted likely phleboliths. Bowel gas pattern is nonobstructive. No mass effect or organomegaly. Regional skeletal structures are intact. IMPRESSION: Probable punctate right upper and lower pole renal calculi. Signed by: Dr. Nicola Mckeon M.D. on 01/12/2019 11:40 AM
== END ==
LOC: RAD 10:54
PROVIDERS: ATTEND Urology
DX: N20.0 Calculus of kidney (principal)
CPT/HCPCS: 74018

== ENCOUNTER → 2023-11-03 | Outpatient (REF) | payer MEDICARE | LOC: NM 08:46 | PROVIDERS: ATTEND Internal Medicine Critical Care Medicine | DX: R06.00 Dyspnea, unspecified (principal) | CPT/HCPCS: 71046; 78580; A9540 ==

== ENCOUNTER 2024-01-24 11:03 | Inpatient (IN) | payer MEDICARE ==
[~2024-01-24] VITALS: Ht 165.1 cm; Wt 68.0 kg
[~2024-01-24 11:03] MED LIST changes: +CITALOPRAM HBR40 MG PO; +CYCLOBENZAPRINE10 MG PO; +LOSARTAN POTASS50 MG PO
[2024-01-24] MEDS ORDERED: SODIUM CHLORIDE FLUSH 10 ML SYR INJ PRN (14:30)
[2024-01-24] MEDS ORDERED: ONDANSETRON HCL INJ 2MG/ML 2ML 2 MG/ML VIAL IV PRN (14:30)
[2024-01-24 14:33] LABS: BASOPHILS % 0.1 % (0.0-1.0); EOSINOPHILS # (AUTO) 0.1 (0.0-0.4); EOSINOPHILS % 0.6 % (0.0-6.0); HEMATOCRIT 36.7 % (34.2-44.1); HEMOGLOBIN 13.1 g/dL (12.0-16.0); LYMPHOCYTES # (AUTO) 1.6 (1.0-3.2); LYMPHOCYTES % 20.1 % (18.0-39.1); MEAN CORPUSCULAR HGB CONC 35.7 g/dL (31-35); MEAN CORPUSCULAR VOLUME 89.5 fL (81-99); MONOCYTES # (AUTO) 0.5 (0.2-0.8); MONOCYTES % 6.7 % (4.4-11.3); NEUTROPHILS # (AUTO) 5.6 (2.1-6.9); NEUTROPHILS % 72.2 % (38.7-80.0); PLATELET COUNT 227 x10e3/uL (140-360); RED CELL DISTRIBUTION WIDTH 12.3 % (11.7-14.4); WHITE BLOOD COUNT 7.73 x10e3/uL (4.8-10.8)
[2024-01-24 14:56] LABS: ALBUMIN 3.1 g/dL (3.5-5.0); ALBUMIN/GLOBULIN RATIO 0.8 (0.8-2.0); ANION GAP 17.5 mmol/L (8-16); BILIRUBIN,TOTAL 0.5 mg/dL (0.2-1.2); CALCIUM 8.8 mg/dL (8.4-10.2); CREATININE, SERUM 0.57 mg/dL (0.57-1.11); POTASSIUM 3.5 mmol/L (3.5-5.1); TOTAL PROTEIN 6.8 g/dL (6.5-8.1)
[2024-01-24 15:37] VITALS: BP 107/74; PULSE 76; RESP 19; TEMP 98.4; O2SAT 100
[2024-01-24 16:06] VITALS: BP 107/74; PULSE 76; RESP 19; TEMP 98.4; O2SAT 100
[2024-01-24 20:00] VITALS: BP 149/68; PULSE 74; RESP 21; TEMP 98; O2SAT 99
[2024-01-24 21:00] VITALS: BP 149/68; PULSE 74; RESP 21; TEMP 98; O2SAT 99
[2024-01-25] VITALS (8 sets, daily range): BP systolic 140–152; BP diastolic 65–80; PULSE 71–86; RESP 17–20; TEMP 97.3–98.6; O2SAT 98–99
[2024-01-25] MEDS ORDERED: MACROBID 100 M100 MG PO (04:14)
[2024-01-25] MEDS ORDERED: MELATONIN3 MG PO (04:24)
[2024-01-25 05:28] LABS: BASOPHILS % 0.2 % (0.0-1.0); EOSINOPHILS # (AUTO) 0.1 (0.0-0.4); EOSINOPHILS % 1.2 % (0.0-6.0); HEMATOCRIT 36.8 % (34.2-44.1); HEMOGLOBIN 12.9 g/dL (12.0-16.0); LYMPHOCYTES # (AUTO) 1.3 (1.0-3.2); LYMPHOCYTES % 19.3 % (18.0-39.1); MEAN CORPUSCULAR HEMOGLOBIN 31.9 pg (28-32); MEAN CORPUSCULAR HGB CONC 35.1 g/dL (31-35); MEAN CORPUSCULAR VOLUME 91.1 fL (81-99); MONOCYTES # (AUTO) 0.6 (0.2-0.8); MONOCYTES % 8.8 % (4.4-11.3); NEUTROPHILS # (AUTO) 4.6 (2.1-6.9); PLATELET COUNT 232 x10e3/uL (140-360); RED BLOOD COUNT 4.04 x10e6/uL (3.6-5.1); RED CELL DISTRIBUTION WIDTH 12.3 % (11.7-14.4); WHITE BLOOD COUNT 6.62 x10e3/uL (4.8-10.8)
[2024-01-25 06:29] LABS: ALBUMIN 2.9 g/dL (3.5-5.0); ALBUMIN/GLOBULIN RATIO 0.8 (0.8-2.0); ANION GAP 15.6 mmol/L (8-16); BILIRUBIN,TOTAL 0.5 mg/dL (0.2-1.2); CALCIUM 8.8 mg/dL (8.4-10.2); CREATININE, SERUM 0.6 mg/dL (0.57-1.11); POTASSIUM 3.6 mmol/L (3.5-5.1); TOTAL PROTEIN 6.4 g/dL (6.5-8.1)
[2024-01-25] MEDS ORDERED: ALENDRONATE SOD70 MG PO (09:36)
[2024-01-25] MEDS ORDERED: DORZOLAMIDE-TIM10 ML OU (09:36)
[2024-01-25] MEDS ORDERED: BRIMONIDINE TAR10 ML OU (09:36)
[2024-01-25] MEDS: LOSARTAN POTASSIUM 25 MG TAB PO SCH (12:40)
[2024-01-25] MEDS: DORZOLAMIDE/TIMOLOL (OPTH SOL) 10 ML DRPETTE OP SCH (17:00)
[2024-01-25] MEDS: BRIMONIDINE TARTRATE 0.15% OPTH DRPS 10ML BTL OP SCH (17:00)
[2024-01-25] MEDS: CITALOPRAM HYDROBROMIDE 20 MG TAB PO SCH (20:19)
[2024-01-25] MEDS: ACETAMINOPHEN 325 MG TAB PO PRN (20:19)
[2024-01-26] VITALS: BP 125/69; PULSE 71; RESP 18; TEMP 98.7; O2SAT 98
[2024-01-26 04:00] VITALS: BP 131/63; PULSE 78; RESP 20; TEMP 98.4; O2SAT 99
[2024-01-26 08:32] VITALS: BP 155/85; PULSE 88; RESP 17; TEMP 97.9; O2SAT 99
[2024-01-26 09:33] VITALS: BP 155/85; PULSE 88; RESP 17; TEMP 97.9; O2SAT 99
[2024-01-26 12:10] VITALS: BP 154/85; PULSE 88; RESP 18; TEMP 98.4; O2SAT 98
[2024-01-26] MEDS ORDERED: CIPRO500 MG PO (15:28)
[2024-01-26] MEDS: TRAMADOL HCL 50 MG TAB PO PRN (15:43)
[2024-01-26 15:57] VITALS: BP 146/74; PULSE 79; RESP 18; TEMP 99; O2SAT 99
[2024-01-31] MEDS ORDERED: ALENDRONATE SODIUM 70 MG TAB PO SCH (06:00)
== END 2024-01-26 18:40 | disposition home or self-care (01) | DRG 552 ==
LOC: ER 11:13 → ERHOLD 14:24 → MED/SURG3 15:28 → OBSVTOIN 01-26 10:14
PROVIDERS: ADMIT Family Medicine; ATTEND Family Medicine
DX: S32.119A Unspecified Zone I fracture of sacrum, initial encounter for closed fracture (principal); S32.512A Fracture of superior rim of left pubis, initial encounter for closed fracture; S32.039A Unspecified fracture of third lumbar vertebra, initial encounter for closed fracture; S32.049A Unspecified fracture of fourth lumbar vertebra, initial encounter for closed fracture; F03.90 Unspecified dementia, unspecified severity, without behavioral disturbance, psychotic disturbance, mood disturbance, and anxiety; W01.0XXA Fall on same level from slipping, tripping and stumbling without subsequent striking against object, initial encounter; Z91.81 History of falling; Y92.012 Bathroom of single-family (private) house as the place of occurrence of the external cause; Z11.52 Encounter for screening for COVID-19; Z88.0 Allergy status to penicillin
CPT/HCPCS: 36415; 72100; 72170; 80053; 85025; 99284; G0378; U0002